=== PATIENT | male | born 1960 | race Caucasian/White ===

== ENCOUNTER 2017-11-28 09:51 | Day surgery (SDC) | payer BC ==
[2017-11-24 16:01] VITALS: BMI 29.0
[~2017-11-28 09:51] MED LIST: LACTATED RINGERS 1,000 ML IV SCH
[2017-11-28 10:55] VITALS: RESP 16; TEMP 97.6
[2017-11-28] MEDS ORDERED: PROPOFOL 10 MG/ML 20 ML VIAL IV ONE (11:44)
[2017-11-28] MEDS ORDERED: LIDOCAINE 1% INJ 10MG/ML (20 ML MDV) ONE (11:44)
--- NOTE | 2017-11-28 12:20 | P.PCN ---
Date of Procedure: 11/28/17 Procedure(s) Performed: Procedure: Total colonoscopy. Preoperative diagnosis: Hemoccult-positive stools. Postoperative diagnosis: 1. Sigmoid diverticulosis with no evidence of acute diverticulitis or strictures. 2. No polyps or tumors seen. 3. Low-grade internal hemorrhoids without bleeding at this time of this exam. Preparation: HalfLytely prep. Sedation: Was provided by anesthesia. Brief clinical history: The patient is a 57-year-old male who is scheduled for this evaluation because of finding of Hemoccult positive stools on his physical exam recently. The patient has no abdominal complaints, overt bleeding or anemia. No upper GI symptoms. His last colonoscopy was in 2008. Procedure: With the patient on his left lateral decubitus position and after informed consent and adequate sedation, the perianal area was inspected and it did not show any fissures or fistulas. There were no masses felt on digital rectal examination. The Olympus CFQ 160L video colonoscope was then inserted in the rectum in the usual fashion and advanced to the cecum. There were several diverticular orifices seen scattered in the sigmoid with no evidence of acute diverticulitis or strictures. No polyps or tumors were seen. I retroflexed the endoscope in the rectum before the endoscope was withdrawn. Low -grade internal hemorrhoids were noted but there was no evidence of bleeding. The patient tolerated the procedure well. Plan: The patient was reassured. Discussed dietary measures and local care for hemorrhoids. In the absence of upper GI complaints or anemia, I did not recommend upper GI workup at this time further workup of his Hemoccult positive stools and this can be kept as a contingency based on his course. He will follow up with you as planned and I will be happy to see in the future. For screening colonoscopy, I am recommending repeat exam in 10 years.
[2017-11-28 12:26] VITALS: BP 138/81; PULSE 45
== END 2017-11-28 12:57 | disposition home or self-care (01) ==
LOC: ORWHC2ENDO 09:51
DX: K57.30 Diverticulosis of large intestine without perforation or abscess without bleeding (principal); K64.8 Other hemorrhoids; K21.9 Gastro-esophageal reflux disease without esophagitis; Z79.899 Other long term (current) drug therapy
CPT/HCPCS: 45378; J2001; J2704

== ENCOUNTER → 2021-07-16 | Outpatient (CLI) | payer BC ==
--- NOTE | 2021-07-16 12:57 | XR ---
EXAMINATION TYPE: XR chest 2V DATE OF EXAM: 07/16/2021 COMPARISON: NONE HISTORY: Shortness of breath TECHNIQUE: Frontal and lateral views of the chest are obtained. FINDINGS: Scattered senescent parenchymal changes noted. Hyperinflation compatible with COPD. No evidence for infiltrate. No evidence for atelectasis. Heart size is stable. Mediastinal structures are stable and grossly unremarkable. No evidence for hilar prominence. Degenerative changes dorsal spine. IMPRESSION: 1. No evidence for acute pulmonary disease.
== END | disposition home or self-care (01) ==
LOC: RADXRMAIN 12:41
PROVIDERS: ATTEND Family Medicine
DX: R06.02 Shortness of breath (principal)
CPT/HCPCS: 71046